=== PATIENT | female | born 1970 | race Caucasian/White ===

== ENCOUNTER → 2024-02-13 16:45 | Outpatient (BNVA) | payer MEDICAID, SELFPAY | PROVIDERS: PCP Nurse Practitioner Family; Visit Provider Nurse Practitioner Family | DX: I10 Essential (primary) hypertension (principal) | CPT/HCPCS: 80053; 80061; 82306; 82607; 83735; 84443; 85025 ==

== ENCOUNTER → 2024-05-14 10:42 | Outpatient (BNVA) | payer MEDICAID, SELFPAY | PROVIDERS: PCP Nurse Practitioner Family; Visit Provider Nurse Practitioner Family | DX: R30.0 Dysuria (principal) | CPT/HCPCS: 81000 ==

== ENCOUNTER → 2024-08-27 10:32 | Outpatient (BNVA) | payer OTHER, SELFPAY | PROVIDERS: PCP Nurse Practitioner Family; Visit Provider Psychiatry & Neurology Psychiatry | DX: F33.2 Major depressive disorder, recurrent severe without psychotic features (principal); F43.10 Post-traumatic stress disorder, unspecified | CPT/HCPCS: 80061; 83036 ==

== ENCOUNTER → 2024-09-23 10:34 | Outpatient (BNVA) | payer MEDICAID, SELFPAY ==
[2024-08-29 11:14] VITALS: BP 139/93; BMI 30.4
== END ==
PROVIDERS: Family Provider Nurse Practitioner Family; PCP Nurse Practitioner Family; Visit Provider Nurse Practitioner Family
DX: M19.011 Primary osteoarthritis, right shoulder (principal)
CPT/HCPCS: 73030

== ENCOUNTER → 2024-10-10 09:49 | Outpatient (BNVA) | payer MEDICAID, SELFPAY ==
[2024-08-29 11:14] VITALS: BP 139/93; BMI 30.4
== END ==
PROVIDERS: Family Provider Nurse Practitioner Family; PCP Nurse Practitioner Family; Visit Provider Orthopaedic Surgery
DX: M25.511 Pain in right shoulder (principal); G89.29 Other chronic pain; M19.011 Primary osteoarthritis, right shoulder
CPT/HCPCS: 99204

== ENCOUNTER → 2024-10-13 13:38 | Outpatient (BNVA) | payer MEDICAID, SELFPAY ==
[2024-08-29 11:14] VITALS: BP 139/93; BMI 30.4
== END ==
PROVIDERS: Family Provider Nurse Practitioner Family; PCP Nurse Practitioner Family; Referring Provider Nurse Practitioner Family; Visit Provider Anesthesiology Pain Medicine
DX: M54.50 Low back pain, unspecified (principal); G89.29 Other chronic pain; M25.559 Pain in unspecified hip; M85.88 Other specified disorders of bone density and structure, other site
CPT/HCPCS: 72110; 73502; 73522; 99204

== ENCOUNTER 2024-10-14 09:00 | Outpatient (CLI) | payer MEDICAID, SELFPAY ==
[2024-08-29 11:14] VITALS: BP 139/93; BMI 30.4
--- NOTE | 2024-10-14 09:20 | MM_ITS ---
WS: [id number] BILATERAL 3D TOMOSYNTHESIS DIGITAL SCREENING MAMMOGRAPHY WITH CAD CLINICAL INFORMATION: SCREENING HISTORY: Screening mammogram. No current complaints. COMPARISON: None. TECHNIQUE: Bilateral CC and MLO views. FINDINGS: The breasts are composed of heterogeneous fibroglandular density tissue, which can limit the detection of small underlying mass lesions. No suspicious mass, asymmetry, calcifications, or architectural distortion. No evidence of malignancy. MM/MM scr tomosynthesis [id number] IMPRESSION: DENSITY: The breasts are heterogeneously dense, which may obscure small masses. BI-RADS: 1 - Negative FOLLOW UP: 1 Year Follow-up Recommend return to annual screening mammography.
== END 2024-10-14 09:01 | disposition home or self-care (01) ==
LOC: MOBLMAM 09:00
PROVIDERS: Family Provider Nurse Practitioner Family; PCP Nurse Practitioner Family; Visit Provider Nurse Practitioner Family
DX: Z12.31 Encounter for screening mammogram for malignant neoplasm of breast (principal); R92.333 Mammographic heterogeneous density, bilateral breasts
CPT/HCPCS: 77063; 77067

== ENCOUNTER 2024-10-30 15:05 | Outpatient (CLI) | payer MEDICAID, SELFPAY ==
[2024-08-29 11:14] VITALS: BP 139/93; BMI 30.4
--- NOTE | 2024-10-30 15:15 | MR_ITS ---
WS: [id number] MRI RIGHT SHOULDER HISTORY: shoulder pain COMPARISON: None available. TECHNIQUE: Multiplanar sequences of the shoulder joint are submitted. Mild AC joint arthritis. Small hypertrophic osteophytes. Moderate subacromial impingement. Small osteophyte from the undersurface of the acromion. There is a very small amount of fluid in the subdeltoid bursa. No os acromion. Biceps tendon in the bicipital groove. There is a small amount of increased fluid within the biceps tendon sheath. Mild distal supraspinatus tendinopathy. There is encroachment upon the supraspinatus tendon by subacromial impingement. No tear. Fraying along the articular and bursal surfaces of the tendon. Mild encroachment upon the subscapularis tendon with distal tendinopathy. Marked thickening with intermediate signal of the distal subscapularis tendon from tendinopathy. No infraspinatus tendon tear. No rotator cuff muscle atrophy or edema. Flattening and abnormal contour involving the posterior lateral humeral head with marrow edema. Moderate glenohumeral joint narrowing. Mild osteophytic ridging around the humeral head. There is a small joint effusion. Surface fraying and intrasubstance degeneration within the labrum but no definite tears are identified. MR/MR shoulder RT wo con* [id number] IMPRESSION: 1. Minimally depressed posterior lateral humeral head fracture. 2. Mild AC joint arthritis. 3. Moderate subacromial impingement upon the supraspinatus tendon. 4. Distal tendinopathy in the supraspinatus and subscapularis tendons. Greates t involving the subscapularis tendon. 5. Narrowing of the coracohumeral interval encroaching upon the subscapularis tendon. 6. Moderate glenohumeral joint arthropathy with osteophytic ridging around the humeral head.
--- NOTE | 2024-10-30 16:00 | MR_ITS ---
WS: [id number] MRI LUMBAR SPINE NONCONTRAST HISTORY: M54.16 - Radiculopathy, lumbar region COMPARISON: Lumbar spine radiograph 10/13/2024 TECHNIQUE: Sagittal and axial multisequence imaging is submitted. Mild increase in thoracic kyphosis. Mild anterior wedging of T1, T2, T3, and T4. Mild increase in the lumbar lordosis. No acute fracture. Disc spaces and vertebral body heights are well-preserved. Conus terminates normally at L1-2 disc level. L1-L2: Normal. L2-L3: Mild facet arthritis. No stenosis. L3-L4: Mild disc bulging. Mild facet arthritis. Minimal narrowing of the LEFT foramen. L4-L5: Mild disc bulging with mild ligamentum flavum and facet arthritis. Mild subarticular recess encroachment by disc bulging. Very slight contact on the traversing L5 nerve roots. Mild foraminal stenosis. L5-S1: Mild disc bulging with a moderate central disc protrusion. Disc protrusion does contact the S1 nerve roots bilaterally. Mild bilateral foraminal stenosis. Moderate facet arthritis. Paravertebral soft tissues are negative. MR/MR lumbar spine wo con* [id number] IMPRESSION: 1. Moderate-sized central disc protrusion at L5-S1. Disc protrusion contacts t he S1 nerve roots bilaterally. Mild subarticular recess and foraminal stenosis. 2. L4-5: Mild disc contact on the traversing L5 nerve roots. Mild foraminal st enosis. 3. L3-4: Mild narrowing of the LEFT foramen. 4. On the localizer image there is mild anterior wedging of the T1, T2, T3 and T4.
== END 2024-10-30 15:06 | disposition home or self-care (01) ==
LOC: RAD 15:06
PROVIDERS: Family Provider Nurse Practitioner Family; PCP Nurse Practitioner Family; Visit Provider Orthopaedic Surgery
DX: M54.16 Radiculopathy, lumbar region (principal); G89.29 Other chronic pain; M19.011 Primary osteoarthritis, right shoulder; M51.27 Other intervertebral disc displacement, lumbosacral region; M48.07 Spinal stenosis, lumbosacral region; M48.061 Spinal stenosis, lumbar region without neurogenic claudication; M48.54XA Collapsed vertebra, not elsewhere classified, thoracic region, initial encounter for fracture; M40.294 Other kyphosis, thoracic region; R93.7 Abnormal findings on diagnostic imaging of other parts of musculoskeletal system; M47.896 Other spondylosis, lumbar region; M51.369 Other intervertebral disc degeneration, lumbar region without mention of lumbar back pain or lower extremity pain; M24.28 Disorder of ligament, vertebrae; M51.379 Other intervertebral disc degeneration, lumbosacral region without mention of lumbar back pain or lower extremity pain; M47.897 Other spondylosis, lumbosacral region; M75.41 Impingement syndrome of right shoulder; M75.81 Other shoulder lesions, right shoulder; R93.6 Abnormal findings on diagnostic imaging of limbs; M25.711 Osteophyte, right shoulder
CPT/HCPCS: 72148; 73221

== ENCOUNTER 2024-11-06 11:39 | Outpatient (CLI) | payer MEDICAID, SELFPAY ==
[2024-08-29 11:14] VITALS: BP 139/93; BMI 30.4
== END 2024-11-06 11:40 | disposition home or self-care (01) ==
LOC: SLEEP 11:40
PROVIDERS: Family Provider Nurse Practitioner Family; PCP Nurse Practitioner Family; Visit Provider Nurse Practitioner Family
DX: G47.33 Obstructive sleep apnea (adult) (pediatric) (principal)
CPT/HCPCS: G0399

== ENCOUNTER → 2024-11-13 11:48 | Outpatient (BNVA) | payer MEDICAID, SELFPAY ==
[2024-08-29 11:14] VITALS: BP 139/93; BMI 30.4
== END ==
PROVIDERS: Family Provider Nurse Practitioner Family; PCP Nurse Practitioner Family; Visit Provider Orthopaedic Surgery
DX: M19.011 Primary osteoarthritis, right shoulder (principal); M75.41 Impingement syndrome of right shoulder
CPT/HCPCS: 99213

== ENCOUNTER → 2024-11-18 10:10 | Outpatient (BNVA) | payer MEDICAID, SELFPAY ==
[2024-08-29 11:14] VITALS: BP 139/93; BMI 30.4
== END ==
PROVIDERS: Family Provider Nurse Practitioner Family; PCP Nurse Practitioner Family; Visit Provider Anesthesiology Pain Medicine
DX: M54.50 Low back pain, unspecified (principal); G89.29 Other chronic pain
CPT/HCPCS: 99214

== ENCOUNTER → 2024-11-19 09:27 | Outpatient (BNVA) | payer MEDICAID, SELFPAY ==
[2024-08-29 11:14] VITALS: BP 139/93; BMI 30.4
== END ==
PROVIDERS: Family Provider Nurse Practitioner Family; PCP Nurse Practitioner Family; Visit Provider Nurse Practitioner Family
DX: I10 Essential (primary) hypertension (principal); R25.1 Tremor, unspecified
CPT/HCPCS: 80053; 80061; 82306; 82607; 83735; 84443; 85025

== ENCOUNTER → 2024-11-25 13:23 | Outpatient (BNVA) | payer MEDICAID, SELFPAY ==
[2024-08-29 11:14] VITALS: BP 139/93; BMI 30.4
== END ==
PROVIDERS: Family Provider Nurse Practitioner Family; PCP Nurse Practitioner Family; Visit Provider Anesthesiology Pain Medicine
DX: M54.16 Radiculopathy, lumbar region (principal); M54.9 Dorsalgia, unspecified; M54.50 Low back pain, unspecified; G89.29 Other chronic pain
CPT/HCPCS: 64483; 64484; J1100; J3490; J9999

== ENCOUNTER → 2024-12-08 10:17 | Outpatient (BNVA) | payer MEDICAID, SELFPAY ==
[2024-08-29 11:14] VITALS: BP 139/93; BMI 30.4
== END ==
PROVIDERS: Family Provider Nurse Practitioner Family; PCP Nurse Practitioner Family; Visit Provider Anesthesiology Pain Medicine
DX: M54.50 Low back pain, unspecified (principal); G89.29 Other chronic pain
CPT/HCPCS: 99213

== ENCOUNTER 2024-12-12 10:17 | Outpatient (CLI) | payer MEDICAID, SELFPAY ==
[2024-08-29 11:14] VITALS: BP 139/93; BMI 30.4
--- NOTE | 2024-12-12 10:19 | US_ITS ---
WS: [id number] ULTRASOUND SOFT TISSUES RIGHT neck. HISTORY: R22.1 - Localized swelling, mass and lump, neck COMPARISON: None available. TECHNIQUE: 2-D and color Doppler imaging is submitted. Patient directed ultrasound to the RIGHT lateral neck. No soft tissue masses or adenopathy identified. US/US soft tissue head neck [id number] IMPRESSION: No discrete mass identified along the RIGHT lateral neck. If there is a palpabl e area of recommend follow-up neck CT with IV contrast.
== END 2024-12-12 10:18 | disposition home or self-care (01) ==
PROVIDERS: Family Provider Nurse Practitioner Family; PCP Nurse Practitioner Family; Visit Provider Nurse Practitioner Family
DX: R22.1 Localized swelling, mass and lump, neck (principal)
CPT/HCPCS: 76536

== ENCOUNTER → 2024-12-16 08:15 | Outpatient (BNVA) | payer MEDICAID, SELFPAY ==
[2024-08-29 11:14] VITALS: BP 139/93; BMI 30.4
== END ==
PROVIDERS: Family Provider Nurse Practitioner Family; PCP Nurse Practitioner Family; Visit Provider Family Medicine
DX: Z01.818 Encounter for other preprocedural examination (principal)
CPT/HCPCS: 81000

== ENCOUNTER → 2024-12-17 07:05 | Day surgery (SDC) | payer MEDICAID, SELFPAY ==
[2024-08-29 11:14] VITALS: BP 139/93; BMI 30.4
[2024-12-17] VITALS (10 sets, daily range): BP systolic 106–135; BP diastolic 65–85; PULSE 60–71; RESP 15–18; TEMP 36.2–36.9; O2SAT 95–99; BMI 30.1
[2024-12-17] MEDS: ondansetron 2 mg/ML SDV 2 mL 4 MG IVP (07:42)
--- NOTE | 2024-12-17 07:44 | W.PM.OPSUD ---
Surgery/Procedure H&P Update DATE OF PROCEDURE: December 17, 2024 DATE H&P PERFORMED: 11/13/24 H&P UPDATE INFORMATION: I have reviewed H&P completed within last 30 days, I have examined patient prior to procedure, No changes to prior documentation and Risks and benefits of the procedure reviewed PREOP DIAGNOSIS: Right shoulder impingement with internal derangement PLANNED PROCEDURE: Operation Date: 12/17/24 08:15 Proposed Procedures p RIGHT Shoulder Arthroscopy(Right) - Misael Smith MD s POSSIBLE ROTATOR CUFF REPAIR(Right) - MD annamarie Sullivan Subacromial Decompression(Right) - Misael Smith MD
[2024-12-17] MEDS: scopolamine 1 mg PATCH 1 PATCH TRANSDERMA (07:47)
[2024-12-17] MEDS: sodium chloride 0.9% 1,000 ML 30 ML IV (07:47)
--- NOTE | 2024-12-17 08:02 | P.ANESASSM_ITS ---
Pre-Anesthetic Assessment Height/Weight: Height 1.6 m Weight 77.111 kg Temp Pulse Resp BP Pulse Ox O2 Del Method 97.1 F L 71 17 135/78 99 Room Air 12/17/24 07:16 12/17/24 07:16 12/17/24 07:16 12/17/24 07:16 12/17/24 07:16 12/17/24 07:19 Preop Diagnosis: Right shoulder impingement with internal derangement Operation Date: 12/17/24 08:15 Proposed Procedures p RIGHT Shoulder Arthroscopy(Right) - Misael Smith MD s POSSIBLE ROTATOR CUFF REPAIR(Right) - Misael Smith MD s Subacromial Decompression(Right) - Misael Smith MD Familial anesthetic complications: Nausea Was Beta Lewis taken within 24 hours: N/A Was Clonidine taken within 24 hours: N/A Last intake: Intake Last Liquid Date 12/16/24 Last Liquid Time 19:00 Last Solid Date 12/16/24 Last Solid Time 19:00 Social No alcohol and No tobacco Former opioid/cannabis Exam alert, oriented x 3, clear to auscultation bilaterally and regular rate & rhythm Airway Mallampati: Class I Dentition: full Pulmonary Sleep Apnea CV/HEM Hypertension GI Gastroesophageal Reflux Disease Neuropsych Anxiety Anesthetic Plan ASA status: 3 Anesthesia: General and Regional (specify below) Risk of > 500 ml blood loss (7ml/kg in children): No Medications/Allergies Home Medications ?Medication ?Instructions ?Recorded ?Confirmed ?Last Taken ?Type hydroxyzine HCl 50 mg tablet 50 mg PO QID PRN anxiety/ insomnia 10/03/24 12/16/24 Unknown Rx #120 tabs trazodone 50 mg tablet 100 mg (2 x 50 mg) PO .HS ID N 10/03/24 12/16/24 12/15/24 Rx insomnia #60 tabs losartan 25 mg tablet 25 mg PO DAILY #90 tabs 10/0412/16/24 12/16/24 Rx pantoprazole 40 mg granules 40 mg PO DAILY #30 ea 11/0412/16/24 12/16/24 Rx delayed-release for susp in packet (Protonix) epinephrine 0.3 mg/0.3 mL 0.3 mg (0.3 mL) IM Q15M PRN 11/25/24 12/16/24 Unknown Rx injection, auto-injector (EpiPen anaphylaxis #2 ea 2-Mick) auto-titrating cpap at 6-16cm #1 ea 12/16/24 Unknown Rx tizanidine 4 mg tablet 4 mg PO TID PRN Muscle Spasm 12/16/24 12/16/24 Unknown History Allergies Allergy/AdvReac Type Severity Reaction Status Date / Time aspirin Allergy Unknown Verified 12/16/24 08:47 bee stings AdvReac Severe Anaphylaxis Uncoded 12/16/24 08:47 Current Medications Generic Name Dose Route Start Last Admin Trade Name Freq PRN Reason Stop Dose Admin Sodium Chloride 1,000 mls @ 30 mls/hr 12/17/24 07:15 12/17/24 07:47 Sodium Chloride 0.9% IV 12/18/24 07:14 30 mls/hr .Q24H MARCUS Administration Ondansetron HCl 4 mg 12/17/24 07:07 12/17/24 07:42 Ondansetron 2 Mg/Ml Sdv 2 Ml IVP 4 mg Q5M PRN Administration NAUSEA AND VOMITING PFSH Anesthesia Medical History Psychiatric care Spinal stenosis MDD (major depressive disorder) GERD (gastroesophageal reflux disease) TIM (generalized anxiety disorder) PTSD (post-traumatic stress disorder) Surgical History History of colonoscopy next due in 04/2025 History of cholecystectomy 2014 Family History Other Breast cancer Cancer Diabetes Hypothyroidism Social History Smoking and tobacco/nicotine status: current every day tobacco/nicotine user cigarettes Packs smoked per day: 3 Years cigarettes smoked: 36 and e-cigarettes E-Cigarette Details: e-cigarette and with nicotine E-cig/vape details: just started Quit status (tobacco/nicotine): considering quitting Second hand smoke exposure: No Alcohol intake: former Former alcohol use details: in late Substance/Drug Use: current Substance/Drug use frequency: daily Other substance/drug use details: 2020 last used Heroin Adopted: No Caregiver/support person: No Lives independently: Yes Household members: none Housing: House Marital status: Marital status details: 18 years ago Number of children: 2 Number of grandchildren: 2 Highest education level completed: GED or Equivalent service: No Current occupational status: unemployed and other Details: trying to get disability Pets and animals: Yes Pets & animals: cat(s), dog(s) and farm animals Farm Animals: pigs Pets & animal details: goats Leisure activites: reading and other Leisure activities details: movie and kayak Sexually active: No Do you think of yourself as: Straight/Heterosexual Current gender identity: Female Jaycee/Roman Catholic: Congregational Special jaycee needs: No Agree to transfusion: Yes Female Reproductive History Para: 2 Spontaneous abortions: No Anesthesia Procedures Nerve Block Nerve Block 1: Main Anesthesia: general anesthesia Time Out Performed: Yes Consent: requested by attending/covering physician, from patient, from other, risks and benefits reviewed and patient agrees to proceed Nerve block location: interscalene (R) Anesthesia monitors applied: pulse oximetry, EKG, BP cuff and oxygen Nerve block position: semi sitting Anesthetic Used: ropivicaine 0.5% (20 ml) and with decadron (4 mg) Ultrasound used to: recognize landmarks, visualize and ID brachial plexus, in supraclavicular region and visualize and ID interscalene groove Nerve Stimulator Used?: No Interscalene/Femoral BLK: 2 stimuplex 22 g needle used for position and inplane approach, visualize local anesthetic spread and no vascular puncture identified Injection: neg aspiration of heme Patient Tolerated Procedure: well Complications: none
--- NOTE | 2024-12-17 08:06 | SUR.PREOP ---
0755-Time out completed in OPS at bedside and an interscalene block was performed to right shoulder, using 20ml 0.5% ropivicaine and 4mg decadron. Patient tolerated well
[2024-12-17] MEDS: ceFAZolin 2,000 mg SDV 2000 MG IVP (08:11)
--- NOTE | 2024-12-17 09:24 | P.OP_ITS ---
Operative Report Date of procedure: December 17, 2024 Surgeon: Misael Smith MD Procedure: Preoperative diagnosis: Internal derangement of the right shoulder with impingement Postop diagnosis: Degenerative tearing of the superior and anterior labrum, grade II chondromalacia glenoid, grade III chondromalacia of humeral head, inner fraying of supraspinatus tendon. Gross bursitis with acromial hook Procedure: Diagnostic right shoulder arthroscopy, debridement of labrum superior and anterior, chondroplasty of glenoid and humeral head, debridement of rotator cuff. Subacromial decompression of the acromion and distal clavicle as well as bursectomy Surgeon: Misael Smith MD Gravity Meter Observer: BEL Jama's assistance was necessary for positioning the patient, assistance through the procedure, wound closure and transported the patient. Anesthesia: General With preoperative skin bloc EBL: Minimal Indications: Pascale is a 54-year-old white female was referred to the orthopedic clinic for debilitating right shoulder pain. After workup was felt that she had impingement of the shoulder and was having some rotator cuff irritation though no tear. MRI confirmed this though there does not demonstrate some tendinosis of the supraspinatus tendon. Also demonstrated some degeneration of the labrum and possibly some articular cartilage. Therefore at this time after failing all conservative measures patient was offered a right shoulder arthroscopy with all located procedures. All risk benefits treatment alternatives were discussed with her and she was agreed to proceed with surgical intervention. Procedure: After obtaining her consent patient had scalene block administered in the preoperative holding area. Patient was then taken to the operating room placed operative table supine position general anesthetic administered. Once good anesthesia was achieved patient was placed up in a beachchair position and padded out appropriately and secured to the bed. Right shoulder and arm were prepped and draped usual fashion. After surgical timeout standard posterior portal was made with #11 blade and camera cannulas placed within the glenohumeral joint remained posteriorly. Anterior working portal was also made at the level of the AC joint and inferior to it. Probing within the glenohumeral joint demonstrated degenerative tears of the labrum from approximately 5 o'[address] position all the way up to about the 11 o'clock position. This is debrided down to stable cartilage space with mechanical shaver. Glenoid was noted to have fraying articular cartilage i.e. grade II chondromalacia. The humeral head had delamination of the cartilage and fraying i.e. grade III chondromalacia. Both these areas debrided down to stable cartilaginous base. Evaluation of the rotator cuff demonstrates some fraying on the inner aspect just posterior to the biceps hiatus this is debrided slightly with mechanical shaver. Camera is then redirected in the subacromial space. Hypertrophic synovium/bursa was in there. This is debrided with mechanical shaver and thermal probe. Large hook of the anterior acromion was identified as well as a bulbous end of the distal clavicle. These were both decompressed with a mechanical bur. A third incision was made off the anterior lateral aspect of the shoulder for better access to the acromion. Once acromioplasty was completed as well as decompression of the AC joint all camera counts were removed. Wounds are closed with 3-0 Prolene interrupted sutures. Wounds were then cleaned and dried dressed with Xeroform gauze sterile gauze dressing ABDs and adhesive tape. Patient placed in arm sling for comfort. She is transferred to recovery room in stable condition
[2024-12-17] MEDS: HYDROcodone-acetaminophen 5-325 mg Tablet 1 TAB PO (10:25)
--- NOTE | 2024-12-17 10:45 | ANE.PACU2 ---
Inpatient post-anesthesia follow up: Airway intact: Yes Vital signs: Temperature 97.8 F Pulse Rate 66 Respiratory Rate 17 Blood Pressure 114/72 Pulse Oximetry 95 Oxygen Delivery Me thod Room Air Oxygen Flow Rate Fraction of Inspir ed Oxygen Hydration adequate: Yes Nausea and vomiting: No Pain level: 1 Mental status: Baseline
== END | disposition home or self-care (01) ==
PROVIDERS: PCP Nurse Practitioner Family; Visit Provider Orthopaedic Surgery
PROC: (CPT 29805; principal; 2024-12-17 07:55)
PROC: (CPT 29826; 2024-12-17 07:55)
DX: S43.431A Superior glenoid labrum lesion of right shoulder, initial encounter (principal); X58.XXXA Exposure to other specified factors, initial encounter; M94.211 Chondromalacia, right shoulder; M75.111 Incomplete rotator cuff tear or rupture of right shoulder, not specified as traumatic; M75.51 Bursitis of right shoulder; I10 Essential (primary) hypertension; G47.30 Sleep apnea, unspecified; K21.9 Gastro-esophageal reflux disease without esophagitis; F41.9 Anxiety disorder, unspecified; F43.10 Post-traumatic stress disorder, unspecified; F17.210 Nicotine dependence, cigarettes, uncomplicated; F19.90 Other psychoactive substance use, unspecified, uncomplicated
CPT/HCPCS: 29807; 29823; 29826; 29824; J0690; J1100; J1885; J2405; J2704; J2795; J3010; J3490; J7030; J9999

== ENCOUNTER 2025-01-04 05:00 | Outpatient (RCR) | payer MEDICAID, SELFPAY ==
[2024-08-29 11:14] VITALS: BP 139/93; BMI 30.4
== END 2025-02-02 23:59 | disposition home or self-care (01) ==
LOC: TPT 05:00
PROVIDERS: PCP Nurse Practitioner Family; Visit Provider Orthopaedic Surgery
DX: Z47.89 Encounter for other orthopedic aftercare (principal)
CPT/HCPCS: 97110; 97161

== ENCOUNTER 2025-02-03 05:00 | Outpatient (RCR) | payer MEDICAID, SELFPAY ==
[2024-08-29 11:14] VITALS: BP 139/93; BMI 30.4
== END 2025-03-05 23:59 | disposition home or self-care (01) ==
LOC: TPT 05:00
PROVIDERS: PCP Nurse Practitioner Family; Visit Provider Orthopaedic Surgery
DX: Z47.89 Encounter for other orthopedic aftercare (principal)
CPT/HCPCS: 97110

== ENCOUNTER → 2025-06-08 12:21 | Outpatient (BNVA) | payer MEDICAID, SELFPAY ==
[2025-05-22 11:12] VITALS: BP 139/93; BMI 30.4
== END ==
PROVIDERS: PCP Nurse Practitioner Family; Visit Provider Nurse Practitioner Family
DX: I10 Essential (primary) hypertension (principal); R10.9 Unspecified abdominal pain
CPT/HCPCS: 80053; 80061; 82306; 82607; 83735; 84443; 85025; 86003; 86008

== ENCOUNTER → 2025-06-30 09:00 | Outpatient (BNVA) | payer OTHER, SELFPAY ==
[2025-05-22 11:12] VITALS: BP 139/93; BMI 30.4
== END ==
PROVIDERS: PCP Nurse Practitioner Family; Visit Provider Nurse Practitioner Family
DX: E87.6 Hypokalemia (principal)
CPT/HCPCS: 80048